=== PATIENT | female | born 1955 | race African-American/Black ===

== ENCOUNTER → 2016-05-31 | Outpatient (CLI) | payer OTHER ==
[~2016-05-31] VITALS: Ht 165.1 cm; Wt 122.5 kg
[~2016-05-31] MED LIST: ALEVE220 MG PO; ASPIR-TRIN325 MG PO; AZATHIOPRINE50 MG PO; BACLOFEN20 MG PO; CLONAZEPAM 1 MG1 M1 PO; ESCITALOPRAM OX10 MG PO; METOPROLOL TART25 MG PO; PATADAY2.5 ML OP; PRAVACHOL20 MG PO; PROTONIX 20 MG20 M1 PO; SEROQUEL 25 MG25 M1 PO; VITAMIN D1000 UNI1 PO
--- NOTE | ~2016-05-31 | P ---
[facility] [place] [address] PROCEDURE REPORT Name: MARK HARRISON Room #: REG [facility] Wilma#: [id number] Admission: 05/31/16 Attend Phys: Ruy Hung Discharge: Date of : 57 Report #: [id number] THIS REPORT FOR: //name// CC: Ruy Eli MD DATE OF SERVICE: 05/31/2016 DATE OF SERVICE: 05/31/2016 PROCEDURE PERFORMED: Upper endoscopy with biopsies. HISTORY OF PRESENT ILLNESS: The patient is a 60-year-old female with a history of iron deficiency anemia. Denies any obvious blood in her stools. Denies any symptoms. She does take aspirin. DESCRIPTION OF PROCEDURE: The risks and benefits of the procedure were explained to the patient, those risks including but not limited to bleeding, perforation, the risk of sedation. She understood these risks and gave informed consent. Sedation was given using propofol per anesthesia. Next, using a standard Azonian upper endoscope, the scope was placed in the patient's mouth and advanced under direct vision through the esophagus, stomach and into the second portion of the duodenum. The esophagus was normal throughout. The GE junction was normal. Overall, the gastric mucosa was normal. The pylorus was normal and patent. The duodenal bulb, first and second portion were all normal. Because of her history of iron deficiency anemia, biopsies were obtained in the duodenum to rule out the possibility of celiac sprue. The scope was then withdrawn and the procedure terminated. The patient tolerated the procedure well. IMPRESSION: Normal upper endoscopy. RECOMMENDATIONS: 1. Await biopsy results. 2. We will proceed with colonoscopy next today. Thank you for allowing me to participate in her care. By: [id number] Ruy Samson MD /nt
--- NOTE | ~2016-05-31 | S ---
[facility] [place] [address] SURGICAL PATH RPT PROCEDURE Name: HUNTERCAROLINE R Room #: REG BLAIR Olivo.#: [id number] Admission: 05/31/16 Date of : 57 Discharge: Report #: [id number] Path Case #: [id number] PATHOLOGY REPORT COLLECTION DATE: 05/31/2016 RECEIVED DATE: 05/31/2016 SUBMITTING PHYS: Dr. Ruy Samson OTHER PHYS: Dr Renuka Eli SPECIMEN(S) RECEIVED: A.Duodenal bx B.Cecum polyp C.Rectum polyp * * * * * * * * * * * * FINAL DIAGNOSIS: A. Small bowel, duodenal, endoscopic biopsy: - No diagnostic abnormalities identified. B. Polyp, cecum polyp, endoscopic biopsy: - Hyperplastic polyp. - Negative for dysplasia. C. Polyp, rectum polyp, endoscopic biopsy: - Hyperplastic polyp. - Negative for dysplasia. (IUV; 06/02/16) PATHOLOGIST: Margaret Dean M.D. REPORT ELECTRONICALLY SIGNED BY: Margaret Dean M.D. DATE/TIME: 06/02/2016 12:55 * * * * * * * * * * * * GROSS PATHOLOGY: A. Received in formalin labeled "Hunter Caroline R, duodenal," are 4 segments of lala soft tissue measuring 1.6 x 0.3 x 0.2 cm in aggregate dimensions and ranging from 0.1 to 0.7 cm in maximum dimension. The specimen is submitted entirely in cassette A1. B. Received in formalin labeled "Caroline Harrison R, cecum," is a segment of lala soft tissue measuring 0.7 x 0.3 x 0.2 cm in maximum dimension. The specimen is submitted entirely in cassette B1. C. Received in formalin labeled "Caroline Harrison R, rectum," are 2 segments of lala soft tissue measuring 0.7 x 0.3 x 0.2 cm in aggregate dimensions and ranging from 0.3 to 0.4 cm in maximum dimension. The specimen is submitted entirely in cassette C1. (ARGENIS; 06/01/2016) [address] [address] SURGICAL PATH RPT PROCEDURE Name: CAROLINE HARRISON Room #: REG [facility] Pallavi.#: [id number] Admission: 05/31/16 Date of : 57 Discharge: Report #: [id number] Path Case #: [id number] CLINICAL HISTORY: Iron deficiency INITIAL CPT CODE(S): A; 63791 B; 79573 C; 52631 Professional services performed by [facility] at [address] , [place] [address] Technical services performed by [facility] at [address] [place] [address], [facility] [address] [address]. [facility] [address] [place] [id number] PHONE: [phone] DIRECTOR: Pato Malave M.D. * * * END OF REPORT * * *
--- NOTE | ~2016-05-31 | P ---
[facility] [place] [address] PROCEDURE REPORT Name: HUNTERMARK R Room #: REG [facility] Wilma#: [id number] Admission: 05/31/16 Attend Phys: Ruy Hung Discharge: Date of : 57 Report #: [id number] THIS REPORT FOR: //name// CC: Ruy Eli MD DATE OF SERVICE: 05/31/2016 PROCEDURE PERFORMED: Colonoscopy with biopsies. HISTORY OF PRESENT ILLNESS: The patient is a 60-year-old female with a history of iron deficiency anemia. Upper endoscopy was just performed, which was normal. Plan is for colonoscopy. DESCRIPTION OF PROCEDURE: The risks and benefits of the procedure were explained to the patient, those risks including but not limited to bleeding, perforation, the risk of sedation. She understood these risks and gave informed consent. Sedation was given using propofol per anesthesia. Next, a digital rectal exam was initially performed, which was normal. Next, using a standard Fujinon colonoscope, the scope was placed in the patient's anus and advanced under direct vision to the cecum. The overall prep was excellent. In the cecum, there was a 4 mm sessile polyp. This was removed with cold forceps, otherwise normal. The ileocecal valve was normal. Ascending, transverse and descending colon were normal. A few scattered diverticula were noted in the sigmoid colon. No evidence of inflammation, otherwise normal. In the rectum, there was a 3 mm sessile polyp. This was also removed with cold forceps. On retroflexion, small nonbleeding internal hemorrhoids were noted, otherwise normal colonoscopy. The scope was then withdrawn and the procedure terminated. The patient tolerated the procedure well. IMPRESSION: 1. Two small colonic polyps. 2. Mild sigmoid diverticulosis. 3. Small internal hemorrhoids. 4. Otherwise, normal colonoscopy. RECOMMENDATIONS: 1. Await biopsy results. 2. We will Hemoccult test stools; if positive, consider M2 capsule for further evaluation of the small bowel. [facility] [address] [place] [address] PROCEDURE REPORT Name: MARK HARRISON Room #: REG BLA[facility] Dillon#: [id number] Admission: 05/31/16 Attend Phys: Ruy Hung Discharge: Date of : 57 Report #: [id number] Thank you for allowing me to participate in her care. By: [id number] Ruy Samson MD /nt
== END ==
LOC: GI 07:58
DX: K63.5 Polyp of colon (principal); K62.1 Rectal polyp; K57.30 Diverticulosis of large intestine without perforation or abscess without bleeding; K64.8 Other hemorrhoids; I10 Essential (primary) hypertension; K21.9 Gastro-esophageal reflux disease without esophagitis; Z87.891 Personal history of nicotine dependence; M19.90 Unspecified osteoarthritis, unspecified site; I67.7 Cerebral arteritis, not elsewhere classified; E11.9 Type 2 diabetes mellitus without complications
CPT/HCPCS: 62110; 62900